=== PATIENT | female | born 1985 | race Caucasian/White ===

== ENCOUNTER 2025-02-16 23:21 | Emergency (ER) | payer MEDICAID, SELFPAY ==
[2025-02-16 23:25] VITALS: BP 148/104
--- NOTE | 2025-02-16 23:58 | ED.GENMED ---
History of Present Illness
<Joyce Boyd PA-C - Last Filed: 02/18/25 14:20>
General
Chief Complaint: Alcohol Problem
Source: patient
Exam Limitations: none
Time Seen by Provider: 02/16/25 23:45
Nursing documentation reviewed up to this point in time: agreed with
History of Present Illness
History of Present Illness:
39-year-old female with past medical history of ADHD, alcohol use disorder, presents to the ER today with concerns of excessive alcohol consumption. Patient reports that she is a daily drinker. Patient states that she is unsure how much she drinks
daily. She reports that she has not been attending work and has been significantly impacting her daily life. Patient is seeking detox. Patient previously was in a detox program years ago and patient reports that she is supposed to be taking
naltrexone but she often forgets to take this. She also reports many areas of bruising on her lower extremities but states that this is not painful, she denies any recent falls. She denies any recent head or neck trauma. She denies any abdominal
pain, hematemesis, dark tarry stools. Patient denies any history of anemia. Patient expresses concern seeking help and is concerned it would impact her job.
Review of Systems
<Joyce Boyd PA-C - Last Filed: 02/18/25 14:20>
Review of Systems
All Other Systems: ROS reviewed and negative except as documented in HPI and ROS
Phy Exam
<Joyce Boyd PA-C - Last Filed: 02/18/25 14:20>
Physical Exam
Physical Exam:
General: Acute alcohol intoxication. Patient is well appearing and in no acute distress.
Skin: Warm and dry, no rashes or lesions
Head: Normocephalic, atraumatic
Eyes: Sclera non-icteric. EOMs intact.
Cardiac: Mild tachycardia otherwise regular rhythm, no murmurs
Pulm: Normal respiratory effort, no wheezes, rales, rhonchi
Abdomen: No abdominal tenderness to palpation
Neuro: Occasional slurred speech. GCS 15. CN II-XII intact, no focal neurologic deficits.
Psychiatric: Appropriate mood and affect.
Scores
<Joyce Boyd PA-C - Last Filed: 02/18/25 14:20>
Withdrawal Assessment of Alcohol
Withdrawal Assessment Completed?: Yes
Nausea and Vomiting: No nausea and no vomiting
Tactile Disturbances: None
Tremor: No tremor
Auditory Disturbances: Not present
Paroxysmal Sweats: No sweat visible
Visual Disturbances: Not present
Anxiety: No anxiety, at ease
Headache, Fullness in Head: Mild
Agitation: Normal activity
Orientation and clouding of sensorium: Oriented and can do serial additions
Total CIWA Score: 2
Alcohol Withdrawal Medication Recommendation: Equal to MSAS Score 0-4. Monitor & re-assess q2hrs, NO MEDICATION NEEDED
Course
<Joyce Boyd PA-C - Last Filed: 02/18/25 14:20>
Orders/Labs/Results
Orders:
Orders
02/17/25 00:05
0.9% Sodium Chloride 1000 ml [Nss] 1,000 ml IV BOLUS
02/17/25 00:26
Alcohol Urgent
Complete Blood Count/With Diff Urgent
Comprehensive Metabolic Panel Urgent
Fentanyl, Urine Urgent
Magnesium Urgent
Urinalysis Reflex To Culture Urgent
Date Specimen was Collected: 02/17/25
Time Specimen was Collected: 00:21
Urine Drug Abuse Screen Urgent
Date Specimen was Collected: 02/17/25
Time Specimen was Collected: 00:21
Urine Microscopic Reflex Cult Urgent
Urine Culture Urgent
MIGUEL Source: U
Specimen Description:
Date Specimen was Collected: 02/17/25
Time Specimen was Collected: 00:21
02/17/25 02:59
Diazepam [Valium] 2 mg PO NOW STA
Ketorolac [Toradol] 15 mg IV NOW STA
02/17/25 08:00
0.9% Sodium Chloride 1000 ml [Nss] 1,000 ml Mvi, Adult [Multivitamin] 10 ml Thiamine Injection 100 mg IV 100 mls/hr
Flush (0.9% Sodium Chloride) [Flush (Nss)] See Dose Instructions IV PER PROTOCOL
02/17/25 10:15
Ibuprofen [Motrin] 600 mg .ROUTE .STK-MED ONE
02/17/25 10:16
Ibuprofen [Motrin] 600 mg PO NOW STA
Abnormal Lab Results
02/17/25
00:26
RBC 4.00 L 10^6/uL
(4.20-5.40)
MCH 33.5 H pg
(27.0-31.0)
Absolute Monos (auto) 0.8 H 10^3/uL
(0.1-0.6)
Monocytes % 10.8 H %
(1.7-9.3)
Sodium 146 H mmol/L
(135-145)
Chloride 108 H mmol/L
(98-107)
Creatinine 0.5 L mg/dL
(0.6-1.0)
Glucose 104 H mg/dl
(70-99)
AST 93 H U/L
(14-36)
ALT 57 H U/L
(0-35)
Leukocyte Esterase Rfl 1+ A
(Negative)
Urine WBC (Reflex) 11-15 A /HPF
(0-5)
Urine Bacteria (Reflex) Few A
(Negative)
Ur Amphetamines Screen Positive H
(Negative)
02/17/25 00:26
02/17/25 00:26
Vital Signs
Initial and Last Documented VS:
Initial Vital Signs
Temp Pulse Resp BP Pulse Ox
98.5 F 104 20 148/104 96
02/16/25 23:25 02/16/25 23:25 02/16/25 23:25 02/16/25 23:25 02/16/25 23:25
Last Documented Vital Signs
Temp Pulse Resp BP Pulse Ox
98.1 F 87 18 135/81 98
02/17/25 11:51 02/17/25 14:19 02/17/25 14:19 02/17/25 14:19 02/17/25 14:19
<Rangel Gilbert PA-C - Last Filed: 02/17/25 11:13>
Orders/Labs/Results
Orders:
Orders
02/17/25 00:05
0.9% Sodium Chloride 1000 ml [Nss] 1,000 ml IV BOLUS
02/17/25 00:26
Alcohol Urgent
Complete Blood Count/With Diff Urgent
Comprehensive Metabolic Panel Urgent
Fentanyl, Urine Urgent
Magnesium Urgent
Urinalysis Reflex To Culture Urgent
Date Specimen was Collected: 02/17/25
Time Specimen was Collected: 00:21
Urine Drug Abuse Screen Urgent
Date Specimen was Collected: 02/17/25
Time Specimen was Collected: 00:21
Urine Microscopic Reflex Cult Urgent
Urine Culture Urgent
MIGUEL Source: U
Specimen Description:
Date Specimen was Collected: 02/17/25
Time Specimen was Collected: 00:21
02/17/25 02:59
Diazepam [Valium] 2 mg PO NOW STA
Ketorolac [Toradol] 15 mg IV NOW STA
02/17/25 08:00
0.9% Sodium Chloride 1000 ml [Nss] 1,000 ml Mvi, Adult [Multivitamin] 10 ml Thiamine Injection 100 mg IV 100 mls/hr
Flush (0.9% Sodium Chloride) [Flush (Nss)] See Dose Instructions IV PER PROTOCOL
02/17/25 10:15
Ibuprofen [Motrin] 600 mg .ROUTE .STK-MED ONE
02/17/25 10:16
Ibuprofen [Motrin] 600 mg PO NOW STA
Abnormal Lab Results
02/17/25
00:26
RBC 4.00 L 10^6/uL
(4.20-5.40)
MCH 33.5 H pg
(27.0-31.0)
Absolute Monos (auto) 0.8 H 10^3/uL
(0.1-0.6)
Monocytes % 10.8 H %
(1.7-9.3)
Sodium 146 H mmol/L
(135-145)
Chloride 108 H mmol/L
(98-107)
Creatinine 0.5 L mg/dL
(0.6-1.0)
Glucose 104 H mg/dl
(70-99)
AST 93 H U/L
(14-36)
ALT 57 H U/L
(0-35)
Leukocyte Esterase Rfl 1+ A
(Negative)
Urine WBC (Reflex) 11-15 A /HPF
(0-5)
Urine Bacteria (Reflex) Few A
(Negative)
Ur Amphetamines Screen Positive H
(Negative)
02/17/25 00:26
02/17/25 00:26
Vital Signs
Initial and Last Documented VS:
Initial Vital Signs
Temp Pulse Resp BP Pulse Ox
98.5 F 104 20 148/104 96
02/16/25 23:25 02/16/25 23:25 02/16/25 23:25 02/16/25 23:25 02/16/25 23:25
Last Documented Vital Signs
Temp Pulse Resp BP Pulse Ox
98.1 F 87 18 135/81 98
02/17/25 11:51 02/17/25 14:19 02/17/25 14:19 02/17/25 14:19 02/17/25 14:19
<Joyce Boyd PA-C - Last Filed: 02/18/25 14:20>
MDM/Problems Addressed
Differential Diagnosis Includes:
Acute alcohol intoxication, alcohol withdrawal, opioid withdrawal, anemia, alcohol use disorder, depression, anxiety,
MDM/Problems Addressed:
39-year-old female with past medical history of alcohol use disorder presents to the ER today with concerns of acute alcohol intoxication. She presents with her aunt. She seeks help for alcohol use disorder. She was given IV fluids. She started
to have mild withdrawal symptoms and was given anti-inflammatories for headache as well as a dose of Valium. Symptoms have improved. Patient does not meet admission criteria for alcohol withdrawal symptoms. Patient stable to go to detox center.
Case signed out to Cale RODRIGUEZ pending CARES evaluation at 7:45 AM.
<Joyce Boyd PA-C - Last Filed: 02/18/25 14:20>
*Pulse Oximetry
SaO2: 96
Oxygen Mode of Delivery: Room air
Patient hypoxic: no
*Critical Care Note
Total Time (30-74mins, 75-104mins- exclusive of procedures): Not Applicable
<Joyce Boyd PA-C - Last Filed: 02/18/25 14:20>
Update Note
Update Note:
CIWA SCORE
7+ (anxiety, headache, mild nausea, anxiety)
Patient claims she is going into withdrawal. Once patient's Aunt left emergency department, patient no longer wants help and 'just wants to lay here and try to sleep.' Will give dose of valium. Will give Toradol for headache. Alcohol level noted to
be 352.
On reassessment, patient notes that her symptoms are much improved. She states that she has a lingering headache but is getting better. She was sleeping on my evaluation. CIWA 1.
Do not feel that patient needs to be admitted to the hospital for acute withdrawal at this time. Patient initially refusing detox but now interested in detox if she is able to speak to a different [employer] worker.
<Rangel Gilbert PA-C - Last Filed: 02/17/25 11:13>
Update Note
Update Note:
CIWA SCORE
7+ (anxiety, headache, mild nausea, anxiety)
Patient claims she is going into withdrawal. Once patient's Aunt left emergency department, patient no longer wants help and 'just wants to lay here and try to sleep.' Will give dose of valium. Will give Toradol for headache. Alcohol level noted to
be 352.
On reassessment, patient notes that her symptoms are much improved. She states that she has a lingering headache but is getting better. She was sleeping on my evaluation. CIWA 1.
Do not feel that patient needs to be admitted to the hospital for acute withdrawal at this time. Patient initially refusing detox but now interested in detox if she is able to speak to a different [employer] worker.
Mild assumed care of patient upon signout. Patient did speak with Silver from the [email or web address]. Patient not willing to go to detox. She wishes to go home and try to detox on her own at her aunt and uncle's house. Will supply a limited amount of Valium to
help with her symptoms. Medically no need for admission to hospital. Discussed with current emergency room attending
ED Attending Note
<Joyce Boyd PA-C - Last Filed: 02/18/25 14:20>
-
Portions of this chart may have been created with voice recognition software.� Occasional wrong word or��sound alike� substitutions may have occurred due to the inherent limitations of voice recognition software.
Discharge Plan
Departure
Patient Disposition: Home (Routine Discharge)
Date of Disposition: 02/17/25
Time of Disposition: 11:09
Patient with high blood pressure during this ER visit?: No
Discharge Problem:
Alcohol abuse
Instructions: Alcohol Use Disorder (DC), Alcohol Poisoning (DC)
Prescriptions:
New
diazepam [Valium] 2 mg tablet
2 mg PO TID PRN (Reason: alcohol withdrawal) Qty: 9 0RF
No Action
dextroamphetamine-amphetamine [Adderall XR] 30 mg Capsule,Extended Release 24hr
30 mg PO DAILY
Patient Comments:
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
Wellbutrin
Patient Comments:
no pharamcy fills
naltrexone
Patient Comments:
from a clinic
Referrals:
UNKNOWN - PT DOES,NOT KNOW [Family Provider]
Activity Restrictions/Additional Instructions:
Return if needed.
Interventions
Interventions:
*Risk Screen - Suicide Last Done: 02/16/25 23:25
*General Assessment Last Done: 02/16/25 23:48
*Neglect/Abuse Screening Last Done: 02/16/25 23:48
*ED- Fall Risk Assessment Last Done: 02/16/25 23:48
*ED COVID-19 Vaccine History Last Done: 02/16/25 23:48
*Nursing Disposition Last Done: 02/17/25 14:19
ED- Neurological Assessment Last Done: 02/17/25 00:00
ED-Psychological Assessment Last Done: 02/17/25 00:00
Discharge Date and Time
Discharge Date/Time: 02/17/25 14:22
Print Language: VIETNAMESE
[2025-02-17] MEDS: NSS 1000 IV (00:28)
[2025-02-17 00:41] LABS: Hematocrit 39.3 % (37.0-47.0); Hemoglobin 13.4 g/dL (12.0-16.0); Mean Corp Hgb Conc. 34.1 g/dL (33.0-37.0); Mean Corpuscular Volume 98.3 fL (81.0-99.0); Nucleated Red Blood Cells % 0 %; Platelet Count 228 10^3/uL (130-400); Red Cell Dist. Width 14.3 % (11.5-14.5)
[2025-02-17 00:51] LABS: Urine Character Clear (Clear)
[2025-02-17 01:05] LABS: ALT (SGPT) 57 U/L (0-35); AST (SGOT) 93 U/L (14-36); Albumin 4.9 g/dl (3.5-5.0); Alkaline Phosphatase 87 U/L (38-126); Blood Urea Nitrogen 8 mg/dl (7-17); Calcium 9.8 mg/dl (8.4-10.2); Carbon Dioxide 25 mmol/L (22-30); Chloride 108 mmol/L (98-107); Glucose 104 mg/dl (70-99); Magnesium 2.1 mg/dl (1.6-2.3); Potassium 4.5 mmol/L (3.5-5.1); Sodium 146 mmol/L (135-145); Total Protein 7.7 g/dl (6.3-8.2); eGFR > 60.00
[2025-02-17 01:17] LABS: Urine Squamous Cell >30 /LPF (Few)
[2025-02-17 01:19] LABS: Urine Red Blood Cell None Seen /HPF (0-2)
[2025-02-17] MEDS: TORADOL 15 MG IV (03:16)
[2025-02-17 03:17] VITALS: BP 139/88
[2025-02-17] MEDS: VALIUM 2 MG PO (03:17)
[2025-02-17 03:18] VITALS: BP 139/88
[2025-02-17] MEDS: MULTIVITAMIN 1011 MG IV (08:05)
[2025-02-17] MEDS: MULTIVITAMIN 1011 ML IV (08:05)
[2025-02-17 08:15] VITALS: BP 135/85
[2025-02-17] MEDS: MOTRIN 600 MG PO (10:17)
[2025-02-17 11:51] VITALS: BP 137/81
[2025-02-17 14:19] VITALS: BP 135/81
== END 2025-02-17 14:22 | disposition home or self-care (01) ==
LOC: EMR 23:21
PROVIDERS: Physician Assistant; EMERGENCY PHYSICIAN Emergency Medicine
DX: F10.139 Alcohol abuse with withdrawal, unspecified (principal); T51.91XA Toxic effect of unspecified alcohol, accidental (unintentional), initial encounter; X58.XXXA Exposure to other specified factors, initial encounter; R51.9 Headache, unspecified; F41.9 Anxiety disorder, unspecified
CPT/HCPCS: 96365; 96366; 96375; 96361; 99284; 80053; 80306; 80307; 81003; 81015; 82077; 83735; 85025; 87086